=== PATIENT | male | born 1980 | race Caucasian/White ===

== ENCOUNTER 2019-03-30 03:22 | Emergency (ER) | payer MEDICAID ==
[~2019-03-30] VITALS: Ht 170.2 cm; Wt 95.5 kg
[2019-03-30 03:37] VITALS: TEMP 98.2
[2019-03-30] MEDS ORDERED: AMOXICILLIN 8751 TAB PO (03:51)
[2019-03-30] MEDS ORDERED: ASPIRIN 81M81 MG/TA2 PO (03:51)
[2019-03-30] MEDS ORDERED: VALIUM 10MG10 MG/TAB PO (03:52)
[2019-03-30] MEDS ORDERED: DULCOLAX STOOL100 MG PO (03:52)
[2019-03-30] MEDS ORDERED: LOVENOX 100100 MG/ML SQ (03:53)
[2019-03-30] MEDS ORDERED: DITROPAN 5MG TAB5 MG PO (03:54)
[2019-03-30] MEDS ORDERED: ULTRAM 50MG TAB50 MG PO (03:55)
[2019-03-30] MEDS ORDERED: JANTOVEN3 M1 PO (03:55)
[2019-03-30 04:19] LABS: BASO # 0.1 (0.0-0.2); BASO % 0.6 % (0.0-2.0); EOS # 0.4 (0.0-0.7); EOS % 3.2 % (0-4.0); GRAN # 7.1 (1.4-6.5); GRAN % 62.9 % (42.2-75.2); HEMATOCRIT 39.4 % (42.0-52.0); HEMOGLOBIN 13.6 g/dl (13.5-18.0); LYMPH # 2.8 (1.2-3.4); LYMPH % 24.8 % (20.0-51.0); MEAN CELL VOLUME 89 fl (80.0-100.0); MEAN CORPUSCULAR HEMOGLOBIN 31 pg (27.0-31.0); MEAN CORPUSCULAR HGB CONC 35 g/dl (33.0-37.0); MEAN PLATELET VOLUME 9.9 fl (7.4-10.4); MONO # 0.9 (0.1-0.6); PLATELET COUNT 207 K/mm3 (130-400); RED BLOOD COUNT 4.42 M/mm3 (4.20-5.60); REDCELL DISTRIBUTION WIDTH-CV 12.3 % (11.5-14.5)
[2019-03-30 04:31] LABS: ALBUMIN 4.4 gm/dL (3.5-5.0); BILIRUBIN,TOTAL 1.4 mg/dL (0.0-1.0); CALCIUM 8.7 mg/dL (8.4-10.2); CREATININE, serum 1.11 (0.66-1.25); POTASSIUM 4.2 mmol/L (3.4-5.0); TOTAL PROTEIN 7.4 gm/dL (6.4-8.2)
[2019-03-30 04:38] LABS: INR 1.1 (0.8-3.0); PROTHROMBIN TIME 13.3 SECONDS (9.7-12.8)
[2019-03-30 04:41] LABS: PARTIAL THROMBOPLASTIN TIME 31.7 SECONDS (26.0-37.0)
[2019-03-30] MEDS ORDERED: NORCO 325 MG-51 TAB PO ×2 (07:26→08:25)
[2019-03-30 08:00] VITALS: BP 114/72; PULSE 85
== END 2019-03-30 08:34 | disposition home or self-care (01) ==
LOC: COL.ER 03:22
PROVIDERS: Emergency Medicine
DX: G89.18 Other acute postprocedural pain (principal); L76.22 Postprocedural hemorrhage of skin and subcutaneous tissue following other procedure; Z79.82 Long term (current) use of aspirin
CPT/HCPCS: J2405; J3010; J7030; Q9967

== ENCOUNTER 2019-04-25 21:37 | Emergency (ER) | payer MEDICAID ==
[~2019-04-25] VITALS: Ht 170.2 cm; Wt 90.9 kg
[~2019-04-25 21:37] MED LIST: AMOXICILLIN 8751 TAB PO; ASPIRIN 81M81 MG/TA2 PO; DITROPAN 5MG TAB5 MG PO; DULCOLAX STOOL100 MG PO; JANTOVEN3 M1 PO; LOVENOX 100100 MG/ML SQ; NORCO 325 MG-51 TAB PO; ULTRAM 50MG TAB50 MG PO; VALIUM 10MG10 MG/TAB PO
[2019-04-25 22:36] LABS: COLLECTION METHOD CATHETER
[2019-04-25 23:03] LABS: BUDDING YEAST Present /hpf; PH 6 (5-8); SQUAMOUS EPITHELIAL 0-2 /hpf; URINE APPEARANCE Cloudy; URINE BACTERIA Rare /hpf; URINE BILIRUBIN Negative (NEGATIVE); URINE BLOOD 3+ (NEGATIVE); URINE COLOR Yellow; URINE GLUCOSE Negative (NEGATIVE); URINE KETONE Negative (NEGATIVE); URINE LEUKOCYTE ESTERASE 2+ (NEGATIVE); URINE NITRATE Positive (NEGATIVE); URINE PROTEIN(semi-quant) 2+ (NEGATIVE); URINE RBC >50 /hpf; URINE UROBILINOGEN Negative (NEGATIVE)
[2019-04-25 23:07] LABS: BASO % 0.6 % (0.0-2.0); EOS # 0.3 (0.0-0.7); EOS % 6.3 % (0-4.0); GRAN % 56.1 % (42.2-75.2); HEMOGLOBIN 10.9 g/dl (13.5-18.0); LYMPH # 1.5 (1.2-3.4); LYMPH % 28.1 % (20.0-51.0); MEAN CELL VOLUME 83 fl (80.0-100.0); MEAN CORPUSCULAR HEMOGLOBIN 27 pg (27.0-31.0); MEAN CORPUSCULAR HGB CONC 32 g/dl (33.0-37.0); MEAN PLATELET VOLUME 9.5 fl (7.4-10.4); MONO # 0.5 (0.1-0.6); MONO % 8.7 % (1.7-9.3); PLATELET COUNT 300 K/mm3 (130-400); RED BLOOD COUNT 4.12 M/mm3 (4.20-5.60); REDCELL DISTRIBUTION WIDTH-CV 13.3 % (11.5-14.5)
[2019-04-25 23:08] LABS: HEMATOCRIT 34.3 % (42.0-52.0)
[2019-04-25 23:16] LABS: ALBUMIN 4.3 gm/dL (3.5-5.0); BILIRUBIN,TOTAL 0.7 mg/dL (0.0-1.0); CALCIUM 9.1 mg/dL (8.4-10.2); CREATININE, serum 0.86 (0.66-1.25); POTASSIUM 3.8 mmol/L (3.4-5.0); PROTHROMBIN TIME 24.3 SECONDS (9.7-12.8); TOTAL PROTEIN 7.3 gm/dL (6.4-8.2)
[2019-04-25] MEDS ORDERED: CIPRO 500MG TA500 MG PO (23:56)
[2019-04-26] MEDS ORDERED: VALIUM 10MG10 MG/TAB PO (00:10)
[2019-04-26 00:18] VITALS: BP 122/74; PULSE 72; TEMP 98.9
[2019-04-26] MEDS ORDERED: DOXYCYCLINE 10100 MG PO (19:23)
== END 2019-04-26 00:18 | disposition home or self-care (01) ==
LOC: COL.ER 21:37
PROVIDERS: Family Medicine
DX: B37.41 Candidal cystitis and urethritis (principal); Z79.82 Long term (current) use of aspirin; Z79.01 Long term (current) use of anticoagulants

== ENCOUNTER 2019-12-23 14:16 | Emergency (ER) | payer MEDICAID ==
[~2019-12-23] VITALS: Ht 170.2 cm; Wt 91.8 kg
[~2019-12-23 14:16] MED LIST changes: +CIPRO 500MG TA500 MG PO; +DOXYCYCLINE 10100 MG PO
[2019-12-23 14:32] VITALS: TEMP 98.6
[2019-12-23 15:13] LABS: HEMATOCRIT 48.7 % (42.0-52.0); MEAN CELL VOLUME 85 fl (80.0-100.0); MEAN CORPUSCULAR HEMOGLOBIN 30 pg (27.0-31.0); MEAN CORPUSCULAR HGB CONC 35 g/dl (33.0-37.0); MEAN PLATELET VOLUME 9.9 fl (7.4-10.4); PLATELET COUNT 250 K/mm3 (130-400); RED BLOOD COUNT 5.71 M/mm3 (4.20-5.60); REDCELL DISTRIBUTION WIDTH-CV 13.2 % (11.5-14.5)
[2019-12-23 15:21] LABS: INR 2.7 (0.8-3.0); PROTHROMBIN TIME 30.5 SECONDS (9.7-12.8)
[2019-12-23] MEDS ORDERED: COUMADIN 2MG2 MG/TAB PO (15:27)
[2019-12-23 15:40] VITALS: BP 105/69; PULSE 89
[2019-12-23 16:14] LABS: EOSINOPHIL 6 % (0-4); LYMPHOCYTE 24 % (20.0-51.0); NEUTROPHILS 64 % (42.0-75.2); PLATELET ESTIMATE NORMAL (NORMAL)
== END 2019-12-23 15:40 | disposition home or self-care (01) ==
LOC: COL.ER 14:16
PROVIDERS: Family Medicine
DX: Z95.2 Presence of prosthetic heart valve (principal); Z79.01 Long term (current) use of anticoagulants